=== PATIENT | female | born 2000 | race Two or more races ===

== ENCOUNTER 2022-02-18 14:52 | Emergency (ER) | payer BC ==
[~2022-02-18] VITALS: Ht 167.6 cm; Wt 91.0 kg
[2022-02-18] MEDS ORDERED: ALBU18HF2 IH (15:01)
[2022-02-18] MEDS ORDERED: ALBUTEROL (0.083%) 2.5MG/3ML NEB HHN ONE (15:30)
[2022-02-18] MEDS ORDERED: ALBU6.7H15 INH (15:45)
[2022-02-18 16:26] VITALS: BP 118/78
== END 2022-02-18 16:38 | disposition home or self-care (01) ==
LOC: ER 15:04
DX: J45.901 Unspecified asthma with (acute) exacerbation (principal)
CPT/HCPCS: 93005; 94640; 99283; Z7610